=== PATIENT | female | born 1990 | race Caucasian/White ===

== ENCOUNTER 2020-11-14 19:09 | Emergency (ER) | payer OTHER, SELFPAY ==
--- NOTE | ~2020-11-14 | XR_ITS ---
EXAMINATION: XR lumbar spine min 4V DATE: 11/14/2020 19:43 INDICATION: Low back pain TECHNIQUE: Anteroposterior and lateral views of the lumbar spine, and cone-down lateral view of the l umbosacral junction were obtained. COMPARISON: None. FINDINGS: There is no fracture, dislocation, or subluxation. The vertebral body heights, alignment, a nd intervertebral disc spaces are normal. The paravertebral soft tissues are unremarkable. IMPRESSION: 1. No acute osseous abnormality. Reviewed, dictated and finalized at location A. [employer]
[2020-11-14 19:24] VITALS: BP 136/78; PULSE 93; RESP 20; TEMP 36.4; O2SAT 100
--- NOTE | 2020-11-14 19:28 | ED.BACK ---
HPI - Back Pain/Injury General Chief Complaint: Back Pain/Injury Stated Complaint: Fall Time Seen by Provider: 11/14/20 19:28 Source: patient and RN notes reviewed Mode of arrival: ambulatory Limitations: no limitations History of Present Illness HPI Narrative: 30-year-old female presents to [facility] with complaints of lower back pain. Patient states that she went to get out of her car slipped and fell backwards on ice. Denies hitting head. No loss of consciousness. Walks with a normal gait. No loss or retention of bowel or bladder. No numbness or tingling in extremities. No abdominal pain or chest pain. Related Data Allergies Allergy/AdvReac Type Severity Reaction Status Date / Time No Known Allergies Allergy Verified 11/14/20 19:29 Review of Systems Review of Systems: Narrative: CONSTITUTIONAL: Denies fever, chills, or sweats. EYES: Denies visual changes, redness, or discharge. CARDIOVASCULAR: Denies chest pain, palpitations, or edema. RESPIRATORY: Denies cough or dyspnea. GASTROINTESTINAL: Denies abdominal pain, nausea, vomiting, or diarrhea. GENITOURINARY: Denies dysuria or hematuria. SKIN: Denies rash or itching. MUSCULOSKELETAL: Positive for back pain. denies joint pain, or myalgia. NEUROLOGIC: Denies headache, numbness, tingling or weakness. PSYCHIATRIC: Denies anxiety or depression. All other systems reviewed are negative, except as documented in HPI. PMFSH Surgical History Surgical History Status post surgical removal of both fallopian tubes Comments At the time of my signature, I reviewed and agree with the nursing past medical, surgical, social, and family history. There is no relevant family history pertinent to the patient complaint. Exam Narrative: Exam Narrative: GENERAL: This is a well-nourished, well-developed patient, in no apparent distress. HEAD: normocephalic, atraumatic. EYES: PERRL. Sclera clear/white. Vision is grossly intact. NECK: Neck supple, non-tender without lymphadenopathy, masses or thyromegaly. CARDIOVASCULAR: Regular rate and rhythm without murmurs, gallops, or rubs. RESPIRATORY: Clear to auscultation. Breath sounds equal bilaterally. No wheezes, rales, or rhonchi. GASTROINTESTINAL: Abdomen soft, non-tender, nondistended. Bowel sounds are active. No hepato-splenomegaly, or palpable masses. No guarding. SKIN: warm, intact with no suspicious lesions or rash, good texture and turgor. NEURO: awake, alert, and oriented to person, place and time. There were no obvious focal neurologic abnormalities. EXTREMITIES: No clubbing, cyanosis, or edema. No joint tenderness, effusion, or edema noted. lly. BACK: Lumbar tenderness without deformity or crepitance. No flank tenderness. Back/Spine/Pelvis: Back: no CVA tenderness Coccyx: no swelling Back/spine/pelvis image: 1. Generalized tenderness, worse with changing of positions and movement. Course Vital Signs Vital signs: Vital Signs Temperature 97.6 F 11/14/20 19:24 Pulse Rate 93 11/14/20 19:24 Respiratory Rate 20 11/14/20 19:24 Blood Pressure 136/78 11/14/20 19:24 Pulse Oximetry 100 11/14/20 19:24 Temperature 97.6 F 11/14/20 19:24 Pulse Rate 93 11/14/20 19:24 Respiratory Rate 20 11/14/20 19:24 Blood Pressure 136/78 11/14/20 19:24 Pulse Oximetry 100 11/14/20 19:24 Reviewed within normal limits Vital Signs Temp Pulse Resp BP Pulse Ox 11/14/20 19:24 97.6 F 93 20 136/78 100 Patient Weight 11/14/20 23:59 Weight 63 kg MDM - Back Pain/Injury Differential Diagnosis Differential diagnosis: Likely lumbar radiculopathy, strain of lumbar region and other (Lumbar back pain. Lumbar fracture) Imaging Data Radiologist's impression: Impressions Lumbar Spine X-Ray 11/14/20 19:47 IMPRESSION: 1. No acute osseous abnormality. Critical Care Time Critical Care Time Critical Care Time: No Discharge Plan
== END 2020-11-14 20:00 | disposition home or self-care (01) ==
PROVIDERS: Emergency Provider Nurse Practitioner; PCP Family Medicine
DX: S39.012A Strain of muscle, fascia and tendon of lower back, initial encounter (principal); W01.0XXA Fall on same level from slipping, tripping and stumbling without subsequent striking against object, initial encounter
CPT/HCPCS: 72110; 99213; G0463